=== PATIENT | male | born 1960 | race Caucasian/White ===

== ENCOUNTER 2021-11-23 13:30 | Emergency (ER) | payer OTHER, BC ==
[2021-11-23 14:00] LABS: #Eosinphils 0.1 thou/uL (0.0-0.7); #Lymphocytes 0.7 thou/uL (1.20-3.40); #Monocytes 0.8 thou/uL (0.11-0.59); #Neutrophils 10.9 thou/uL (1.40-6.50); %Basophils 0.1 % (0.0-1.0); %Eosinophils 0.5 % (0.0-10.0); %Lymphocytes 5.9 % (21.0-51.0); %Monocytes 6.3 % (0.0-10.0); %Neutrophils 87.2 % (42.0-75.0); Hemoglobin 13.8 g/dL (14.0-18.0); Mean Corpuscular HGB CONC 34.7 g/dL (32.0-36.0); Mean Corpuscular Hemoglobin 34.8 pg (27.0-31.0); Mean Platelet Volume 6.1 fL (7.4-10.4); Platelet Count 150 thou/uL (130-400); RBC Distribution Width 12.2 % (11.5-14.5); Red Blood Cell (RBC) Count 3.97 mill/uL (4.70-6.10); White Blood Cell (WBC) Count 12.5 thou/uL (4.8-10.8)
[2021-11-23 14:12] LABS: INR-International Normal Ratio 0.9; Prothrombin Time 12.6 sec (12.0-14.7)
[2021-11-23] MEDS ORDERED: Morphine 4 MG/ML VIAL ONE (14:12)
[2021-11-23] MEDS ORDERED: Boostrix 0.5 ML (Tdap) VIAL ONE (14:12)
[2021-11-23] MEDS ORDERED: Ondansetron PF 4 MG/2 ML Vial ONE (14:12)
[2021-11-23 14:22] LABS: ALT (SGPT) 32 U/L (8-55); AST (SGOT) 38 U/L (5-34); Albumin 4.4 g/dL (3.5-5.0); Alkaline Phosphatase 81 U/L (40-110); Anion Gap 15 mmol/L (10-20); BUN (Urea Nitrogen) 13 mg/dL (8.4-25.7); Bilirubin, Total 0.8 mg/dL (0.2-1.2); Calc. Creatinine Clearance 0 mL/min (70-130); Calcium 9.2 mg/dL (7.8-10.44); Carbon Dioxide 23 mmol/L (22-29); Chloride 101 mmol/L (98-107); Globulin 3.1 g/dL (2.4-3.5); Glucose 125 mg/dL (70-105); Potassium 3.9 mmol/L (3.5-5.1); Protein, Total 7.5 g/dL (6.0-8.3); Sodium 135 mmol/L (136-145)
[2021-11-23] MEDS ORDERED: HYDROcodone/Acetaminophen 5/325 mg Tablet ONE (15:27)
== END 2021-11-23 15:58 | disposition left against medical advice (07) ==
LOC: ERS 13:30
DX: S06.300A Unspecified focal traumatic brain injury without loss of consciousness, initial encounter (principal); S12.590A Other displaced fracture of sixth cervical vertebra, initial encounter for closed fracture; S12.690A Other displaced fracture of seventh cervical vertebra, initial encounter for closed fracture; S22.32XA Fracture of one rib, left side, initial encounter for closed fracture; S30.0XXA Contusion of lower back and pelvis, initial encounter; Z23 Encounter for immunization; W20.8XXA Other cause of strike by thrown, projected or falling object, initial encounter; Y92.89 Other specified places as the place of occurrence of the external cause; Y99.0 Civilian activity done for income or pay
CPT/HCPCS: 70450; 71045; 72125; 72131; 72170; 80053; 85025; 85610; 85730; 90715; 96374; 96375; J2270; J2405

== ENCOUNTER 2021-12-25 13:12 | Outpatient (CLI) | payer BC | END 2021-12-25 13:13 | disposition home or self-care (01) | LOC: BICRAD 13:12 | PROVIDERS: ATTEND Neurological Surgery | DX: S12.600D Unspecified displaced fracture of seventh cervical vertebra, subsequent encounter for fracture with routine healing (principal); M47.812 Spondylosis without myelopathy or radiculopathy, cervical region | CPT/HCPCS: 72040 ==

== ENCOUNTER 2022-03-07 15:26 | Outpatient (CLI) | payer BC | END 2022-03-07 15:27 | disposition home or self-care (01) | LOC: BICCT 15:26 | PROVIDERS: ATTEND Neurological Surgery | DX: S12.690D Other displaced fracture of seventh cervical vertebra, subsequent encounter for fracture with routine healing (principal); S12.590D Other displaced fracture of sixth cervical vertebra, subsequent encounter for fracture with routine healing; S22.32XD Fracture of one rib, left side, subsequent encounter for fracture with routine healing; I62.9 Nontraumatic intracranial hemorrhage, unspecified; M47.812 Spondylosis without myelopathy or radiculopathy, cervical region | CPT/HCPCS: 70450; 72125 ==

== ENCOUNTER 2022-05-09 06:33 | Inpatient (IN) | payer BC ==
[2022-05-09] MEDS ORDERED: Meclizine HCl 25 MG TAB ONE (07:03)
[2022-05-09] MEDS ORDERED: diphenhydrAMINE 50 MG/ML VIAL ONE (07:04)
[2022-05-09] MEDS ORDERED: Metoclopramide 10 MG/10 ML UDCUP ONE (07:04)
[2022-05-09] MEDS ORDERED: Metoclopramide HCl 10 MG/2 ML VIAL ONE (07:05)
[2022-05-09 07:22] LABS: #Eosinphils 0.1 thou/uL (0.0-0.7); #Monocytes 0.8 thou/uL (0.11-0.59); #Neutrophils 6.3 thou/uL (1.40-6.50); %Basophils 0.1 % (0.0-1.0); %Eosinophils 0.9 % (0.0-10.0); %Lymphocytes 12.3 % (21.0-51.0); %Monocytes 9.5 % (0.0-10.0); %Neutrophils 77.2 % (42.0-75.0); Hemoglobin 12.6 g/dL (14.0-18.0); Mean Corpuscular HGB CONC 35.7 g/dL (32.0-36.0); Mean Corpuscular Hemoglobin 35.1 pg (27.0-31.0); Mean Corpuscular Volume 98.2 fl (78.0-98.0); Mean Platelet Volume 6.1 fL (7.4-10.4); Platelet Count 243 10x3/uL (130-400); RBC Distribution Width 12.8 % (11.5-14.5); Red Blood Cell (RBC) Count 3.58 mill/uL (4.70-6.10); White Blood Cell (WBC) Count 8.1 10x3/uL (4.8-10.8)
[2022-05-09 07:42] LABS: ALT (SGPT) 24 U/L (8-55); AST (SGOT) 20 U/L (5-34); Albumin 4.2 g/dL (3.5-5.0); Alkaline Phosphatase 75 U/L (40-110); Anion Gap 16 mmol/L (10-20); BUN (Urea Nitrogen) 17 mg/dL (8.4-25.7); Bilirubin, Total 0.6 mg/dL (0.2-1.2); Calc. Creatinine Clearance 0 mL/min (70-130); Calcium 9.5 mg/dL (7.8-10.44); Carbon Dioxide 20 mmol/L (22-29); Chloride 102 mmol/L (98-107); Estimated GFR 100; Globulin 3.5 g/dL (2.4-3.5); Glucose 140 mg/dL (70-105); Potassium 3.9 mmol/L (3.5-5.1); Protein, Total 7.7 g/dL (6.0-8.3); Sodium 134 mmol/L (136-145)
[2022-05-09] MEDS ORDERED: HYDROmorphone 0.5 MG/0.5 ML SYRINGE ONE (08:17)
[2022-05-09] MEDS ORDERED: Dexamethasone 10 MG/ML VIAL ONE (08:56)
[2022-05-09] MEDS ORDERED: Lorazepam 2 MG/ML VIAL ONE ×2 (09:27→09:47)
[2022-05-09] MEDS ORDERED: levETIRAcetam 500 MG/5 ML VIAL ONE ×2 (09:28→09:45)
[2022-05-09] MEDS ORDERED: FENTANYL 50 MCG/ML 1 ML VIAL ONE (09:47)
[2022-05-09] MEDS ORDERED: NOREPINEPHRINE 8 MG/250 ML-D5W 250 ML ONE (10:42)
[2022-05-09 14:08] LABS: Troponin I Less than 0.010 ng/mL (< 0.028)
[2022-05-09] MEDS ORDERED: Acetaminophen 325 MG TAB PO PRN (14:57)
[2022-05-09] MEDS ORDERED: HYDROcodone/Acetaminophen 7.5/325 mg Tablet PO PRN (14:57)
[2022-05-09] MEDS ORDERED: Ondansetron PF 4 MG/2 ML Vial IVP PRN (14:57)
[2022-05-09] MEDS ORDERED: Dexamethasone 4 mg/ml Vial SLOW IVP SCH (15:00)
[2022-05-09] MEDS: Dexamethasone 4 mg/ml Vial SLOW IVP SCH ×3 (15:25→20:25)
[2022-05-09] MEDS ORDERED: Prevnar 13-Val Conj/PF 0.5 ML SYRINGE IM ONE (15:30)
[2022-05-09] MEDS ORDERED: FLU VACC QS2022-23(6MOS UP)/PF 60 MCG/0.5 ML SYRINGE IM ONE (15:30)
[2022-05-09] MEDS ORDERED: Nicotine 21 MG PATCH TD SCH (16:00)
[2022-05-09] MEDS: HYDROcodone/Acetaminophen 7.5/325 mg Tablet PO PRN ×2 (16:33→20:25)
[2022-05-09] MEDS: Sodium Chloride 0.9% 1,000 ML IV SCH (16:39)
[2022-05-09] MEDS: levETIRAcetam 500 MG/5 ML VIAL SLOW IVP SCH (20:25)
[2022-05-09] MEDS ORDERED: levETIRAcetam in NS 1,000 MG in Premix Bag 1 BAG IVPB SCH (21:00)
[2022-05-10] MEDS: Sodium Chloride 0.9% 1,000 ML IV SCH ×2 (01:28→11:33)
[2022-05-10] MEDS: HYDROcodone/Acetaminophen 7.5/325 mg Tablet PO PRN ×2 (01:40→07:59)
[2022-05-10] MEDS: Dexamethasone 4 mg/ml Vial SLOW IVP SCH ×2 (02:01→08:42)
[2022-05-10 04:03] LABS: #Lymphocytes 0.8 thou/uL (1.20-3.40); #Monocytes 0.4 thou/uL (0.11-0.59); #Neutrophils 9.1 thou/uL (1.40-6.50); %Basophils 0.2 % (0.0-1.0); %Eosinophils 0.1 % (0.0-10.0); %Lymphocytes 7.7 % (21.0-51.0); %Monocytes 3.9 % (0.0-10.0); %Neutrophils 88.1 % (42.0-75.0); Hemoglobin 7.4 g/dL (14.0-18.0); Mean Corpuscular HGB CONC 32.9 g/dL (32.0-36.0); Mean Corpuscular Hemoglobin 32.8 pg (27.0-31.0); Mean Corpuscular Volume 99.6 fl (78.0-98.0); Mean Platelet Volume 6.7 fL (7.4-10.4); Platelet Count 210 10x3/uL (130-400); RBC Distribution Width 12.9 % (11.5-14.5); Red Blood Cell (RBC) Count 2.27 mill/uL (4.70-6.10); White Blood Cell (WBC) Count 10.4 10x3/uL (4.8-10.8)
[2022-05-10 04:38] LABS: Anion Gap 12 mmol/L (10-20); BUN (Urea Nitrogen) 16 mg/dL (8.4-25.7); Calc. Creatinine Clearance 111 mL/min (70-130); Calcium 8.7 mg/dL (7.8-10.44); Carbon Dioxide 20 mmol/L (22-29); Chloride 111 mmol/L (98-107); Estimated GFR 101; Glucose 133 mg/dL (70-105); Potassium 4.1 mmol/L (3.5-5.1); Sodium 139 mmol/L (136-145)
[2022-05-10 05:11] VITALS: BMI 27.7
[2022-05-10 07:32] LABS: Bacteria/HPF None Seen HPF (None Seen); Bilirubin Negative (Negative); Blood, Urine 2+ (Negative); Clarity Clear (Clear); Glucose, Urine (Dipstick) Greater than 1000 mg/dL (Negative); Ketone, Urine Negative (Negative); Leukocyte Negative Leu/uL (Negative); Nitrite Negative (Negative); Protein, Urine (Dipstick) Negative (Neg-Trace); RBC/HPF 21-50 HPF (0-3); Specific Gravity, Urine 1.024 (1.002-1.036); Squamous Epithelial None Seen HPF (0-3); Urobilinogen Normal mg/dL (Less than 2); WBC/HPF 0-3 HPF (0-3); pH, Urine 5.5 (5.0-9.0)
[2022-05-10 07:35] LABS: Urine Culture Reflex No No
[2022-05-10] MEDS: levETIRAcetam 500 MG/5 ML VIAL SLOW IVP SCH (08:42)
[2022-05-10 11:44] VITALS: TEMP 97.9
== END 2022-05-10 11:55 | disposition home or self-care (01) | DRG 54 ==
LOC: ERS 06:33 → CCU 14:42
PROVIDERS: ADMIT Internal Medicine; ATTEND Internal Medicine
PROC: 3E033XZ Introduction of Vasopressor into Peripheral Vein, Percutaneous Approach (ICD-10-PCS; principal; 2022-05-09)
DX: C79.31 Secondary malignant neoplasm of brain (principal); G93.6 Cerebral edema; R57.8 Other shock; E87.1 Hypo-osmolality and hyponatremia; C34.90 Malignant neoplasm of unspecified part of unspecified bronchus or lung; F17.210 Nicotine dependence, cigarettes, uncomplicated; G40.909 Epilepsy, unspecified, not intractable, without status epilepticus; Z71.6 Tobacco abuse counseling; Z98.890 Other specified postprocedural states; Z79.899 Other long term (current) drug therapy
CPT/HCPCS: 36415; 36416; 70496; 70498; 70553; 71045; 80048; 80053; 81001; 82533; 83605; 84484; 85025; 87040; 87077; 87149; 93005; 95712; 95819; 95957; J1100; J1170; J1200; J1953; J2060; J2765; J3010; J7050

== ENCOUNTER 2022-07-02 21:42 | Inpatient (IN) | payer BC ==
[2022-07-02 23:08] LABS: Actual Bicarbonate (HCO3v) 16 mEq/L (22-28); Base Excess -7.9 mEq/L (-2.0 to +3.0); Chloride (VBG) 99 mmol/L (98-106); Hemoglobin (Hb) 9.9 g/dL (13.1-17.2); Potassium (VBG) 4.56 mmol/L (3.70-5.30); Sodium 131.3 mmol/L (133-146); pH (venous) 7.37 (7.32-7.43)
[2022-07-02 23:15] LABS: SARS-CoV-2 NAA Rapid Test Not Detected (NotDetected)
[2022-07-02 23:23] LABS: Mean Corpuscular HGB CONC 32.7 g/dL (32.0-36.0); Mean Corpuscular Hemoglobin 32.2 pg (27.0-31.0); Mean Corpuscular Volume 98.5 fl (78.0-98.0); Mean Platelet Volume 7.6 fL (7.4-10.4); Platelet Count 136 10x3/uL (130-400); RBC Distribution Width 17.2 % (11.5-14.5); Red Blood Cell (RBC) Count 2.81 mill/uL (4.70-6.10); White Blood Cell (WBC) Count 14.3 10x3/uL (4.8-10.8)
[2022-07-02 23:29] LABS: ALT (SGPT) 187 U/L (8-55); AST (SGOT) 515 U/L (5-34); Albumin 2.6 g/dL (3.5-5.0); Alkaline Phosphatase 1935 U/L (40-110); Anion Gap 26 mmol/L (10-20); BUN (Urea Nitrogen) 37 mg/dL (8.4-25.7); Bilirubin, Total 2.7 mg/dL (0.2-1.2); Calc. Creatinine Clearance 0 mL/min (70-130); Calcium 8.8 mg/dL (7.8-10.44); Carbon Dioxide 15 mmol/L (22-29); Chloride 98 mmol/L (98-107); Estimated GFR 58; Globulin 3.3 g/dL (2.4-3.5); Glucose 110 mg/dL (70-105); Magnesium 2.6 mg/dL (1.6-2.6); Potassium 4.8 mmol/L (3.5-5.1); Protein, Total 5.9 g/dL (6.0-8.3); Sodium 134 mmol/L (136-145)
[2022-07-02 23:41] LABS: #Lymphocytes 1.1 thou/uL (1.20-3.40); #Monocytes 1.3 thou/uL (0.11-0.59); #Neutrophils 11.8 thou/uL (1.40-6.50); %Eosinophils 0.2 % (0.0-10.0); %Lymphocytes 7.9 % (21.0-51.0); %Monocytes 9.1 % (0.0-10.0); %Neutrophils 82.8 % (42.0-75.0); Anisocytosis SLIGHT = 6-15 cells (100X) (0-5/hpf); MDiff Complete? YES
[2022-07-02 23:49] LABS: CKMB 4.4 ng/mL (0-6.6)
[2022-07-02] MEDS ORDERED: Vancomycin 1 GM/200 ML (FROZEN) BAG ONE (23:57)
[2022-07-03] MEDS ORDERED: Cefepime 2 GM VIAL ONE ×2 (00:16→09:48)
[2022-07-03] MEDS ORDERED: HYDROcodone/Acetaminophen 10/325 mg Tablet ONE ×3 (00:16→15:38)
[2022-07-03 03:03] LABS: Lactic Acid 5.2 mmol/L (0.5-2.2)
[2022-07-03 03:03] LABS: Bacteria/HPF None Seen HPF (None Seen); Bilirubin Negative (Negative); Blood, Urine 1+ (Negative); Clarity Clear (Clear); Glucose, Urine (Dipstick) Normal (Negative); Ketone, Urine Negative (Negative); Leukocyte Negative Leu/uL (Negative); Nitrite Negative (Negative); Protein, Urine (Dipstick) 20 mg/dL (Neg-Trace); Specific Gravity, Urine 1.019 (1.002-1.036); Squamous Epithelial 0-3 HPF (0-3); WBC/HPF 0-3 HPF (0-3)
[2022-07-03 03:05] LABS: Troponin I 0.037 ng/mL (< 0.028)
[2022-07-03] MEDS ORDERED: Ondansetron ODT 4 MG TAB PO PRN (05:00)
[2022-07-03] MEDS ORDERED: Acetaminophen 650 MG Suppository PR PRN (05:00)
[2022-07-03] MEDS ORDERED: Acetaminophen 325 MG TAB PO PRN (05:00)
[2022-07-03] MEDS ORDERED: Ondansetron PF 4 MG/2 ML Vial IVP PRN (05:00)
[2022-07-03] MEDS ORDERED: Morphine 4 MG/ML VIAL SLOW IVP PRN (05:03)
[2022-07-03] MEDS ORDERED: Sodium Chloride 0.9% 1,000 ML IV SCH (06:30)
[2022-07-03 06:39] LABS: Troponin I 0.036 ng/mL (< 0.028)
[2022-07-03 08:00] VITALS: TEMP 97.8
[2022-07-03 08:07] LABS: Lactic Acid 4.3 mmol/L (0.5-2.2)
[2022-07-03] MEDS ORDERED: Enoxaparin Sodium 40 MG/0.4 ML SYRINGE ONE (08:50)
[2022-07-03] MEDS ORDERED: Enoxaparin Sodium 40 MG/0.4 ML SYRINGE SC SCH (09:00)
[2022-07-03] MEDS: HYDROcodone/Acetaminophen 10/325 mg Tablet PO SCH ×2 (09:56→15:40)
[2022-07-03] MEDS ORDERED: Cefepime 2 GM in Sodium Chloride 0.9% 100 ML IVPB SCH (11:00)
[2022-07-03] MEDS ORDERED: VANCOMYCIN 1.25 GM/250 ML BAG 1.25 GM in Premix Bag 1 BAG IVPB SCH (12:00)
[2022-07-03 13:00] VITALS: BP 111/69
[2022-07-03] MEDS ORDERED: Dexamethasone 4 MG TAB PO SCH (15:00)
[2022-07-03] MEDS ORDERED: Dexamethasone 4 MG TAB ONE (15:38)
[2022-07-03] MEDS ORDERED: Amoxicillin/Potassium Clav 600 mg/5 ml Oral Suspension PO SCH ×2 (21:00)
[2022-07-03] MEDS ORDERED: Non-Formulary Item 1 EACH (Levetiracetam [Keppra] 1,000 MG Tablet) PO SCH (21:00)
[2022-07-03] MEDS ORDERED: levETIRAcetam 500 MG TAB PO SCH (21:00)
== END 2022-07-03 16:58 | disposition hospice, home (50) | DRG 871 ==
LOC: ERS 21:42 → ERHOLD 07-03 02:39
PROVIDERS: ADMIT Student in an Organized Health Care Education/Training Program; ATTEND Student in an Organized Health Care Education/Training Program
DX: A41.9 Sepsis, unspecified organism (principal); J18.8 Other pneumonia, unspecified organism; Z51.5 Encounter for palliative care; Z20.822 Contact with and (suspected) exposure to COVID-19; C34.90 Malignant neoplasm of unspecified part of unspecified bronchus or lung; E87.20 Acidosis, unspecified; N17.9 Acute kidney failure, unspecified; C79.31 Secondary malignant neoplasm of brain; C78.7 Secondary malignant neoplasm of liver and intrahepatic bile duct; R65.20 Severe sepsis without septic shock; I10 Essential (primary) hypertension; R77.8 Other specified abnormalities of plasma proteins; R74.01 Elevation of levels of liver transaminase levels; Z79.899 Other long term (current) drug therapy; Z90.49 Acquired absence of other specified parts of digestive tract
CPT/HCPCS: 36415; 70450; 71045; 80053; 81003; 81015; 82553; 82805; 83605; 83735; 83880; 84484; 85025; 87040; 87086; 93005; J0692; J1650; J3370; J3370-JW; J3490; J7050; J8540; U0002